=== PATIENT | female | born 1960 | race American Indian/Alaskan Native ===

== ENCOUNTER 2019-10-27 11:34 | Emergency (ER) | payer OTHER ==
[2019-10-27 12:38] VITALS: BP 187/67
--- NOTE | 2019-10-27 13:03 | Emergency Department Report ---
ED Lower Extremity HPI - General Chief Complaint: Extremity Problem,Nontraumatic Stated Complaint: LFT LEG PAIN EXTREME Time Seen by Provider: 10/27/19 12:28 Source: patient Mode of arrival: Wheelchair Limitations: No Limitations - History of Present Illness Initial Comments: This is a 59-year-old -[place] female who presents to the emergency room with left hip pain radiating down leg for several days. Past medical history of diabetes and hypertension. Patient reports occasional swelling which was improved with ice hot therapy. She reports pain is worse with weightbearing and intermittent. She denies recent injury, erythema, numbness or tingling, weakness, or chills. MD Complaint: hip injury (Left hip) Onset/Timin -: days(s) Injury: Hip: Left Type of Injury: unknown Place: home Improves With: nothing Worsens With: weight bearing Associated Symptoms: swelling, ambulatory. denies: snap/pop sensation, n umbness, tingling Treatments Prior to Arrival: cold therapy - Related Data Allergies Allergy/AdvReac Type Severity Reaction Status Date / Time No Known Allergies Allergy Unverified 10/27/19 11:46 ED Review of Systems ROS: Stated complaint: LFT LEG PAIN EXTREME Other details as noted in HPI Constitutional: denies: chills, fever Respiratory: denies: cough, shortness of breath, wheezing Cardiovascular: denies: chest pain, palpitations Gastrointestinal: denies: abdominal pain, nausea, diarrhea Musculoskeletal: arthralgia (Left hip pain). denies: back pain, joint swelling Skin: denies: rash, lesions Neurological: denies: headache, weakness, paresthesias Psychiatric: denies: anxiety, depression ED Past Medical Hx - Past Medical History Previous Medical History?: Yes Hx Hypertension: Yes Hx Diabetes: Yes - Surgical History Past Surgical History?: Yes Hx Cholecystectomy: Yes - Social History Smoking Status: Current Every Day Smoker Substance Use Type: Alcohol ED Physical Exam - General Limitations: No Limitations General appearance: alert, in no apparent distress, obese - Respiratory Respiratory exam: Present: normal lung sounds bilaterally. Absent: respiratory distress - Cardiovascular Cardiovascular Exam: Present: regular rate, normal rhythm. Absent: systolic murmur, diastolic murmur, rubs, gallop - GI/Abdominal GI/Abdominal exam: Present: soft, normal bowel sounds. Absent: distended, tenderness, guarding, rebound, rigid - Extremities Exam Extremities exam: Present: normal inspection - Expanded Lower Extremity Exam Left Hip exam: Present: full ROM, tenderness Upper Leg exam: Present: full ROM (pain with passive range of motion, motor strength 5 out of 5 distally.), tenderness (over the trochanter on the lateral side), crepidus. Absent: swelling, abrasion, laceration, ecchymosis, deformity, dislocation Knee exam: Present: normal inspection, full ROM Lower Leg exam: Present: normal inspection, full ROM Ankle exam: Present: normal inspection, full ROM Foot/Toe exam: Present: normal inspection, full ROM Neuro vascular tendon exam: Present: no vascular compromise Gait: Positive: observed and normal - Back Exam Back exam: Present: full ROM, paraspinal tenderness (Tenderness over the left iliac crest). Absent: muscle spasm, vertebral tenderness, rash noted - Neurological Exam Neurological exam: Present: alert, oriented X3, normal gait - Psychiatric Psychiatric exam: Present: normal affect, normal mood - Skin Skin exam: Present: warm, dry, intact, normal color. Absent: rash ED Course Vital Signs 10/27/19 11:45 Temperature 98 F Pulse Rate 63 Respiratory 20 Rate Blood Pressure 187/67 O2 Sat by Pulse 99 Oximetry ED Lower Extremity MDM - Radiology Data Radiology results: report reviewed Left hip-2 views INDICATION: hip pain. COMPARISON: None. IMPRESSION: No acute osseous or soft tissue abnormality. Mild DJD in the hips and SI joints. - Medical Decision Making 59-year-old female complaining of left hip pain. Patient was examined by me. Patient is nontoxic appearing and stable. Vitals are normal. Work-up: X-ray of left hip. Findings of no acute osseous or soft tissue abnormality. Mild DJD in the hips and SI joints. Given history, exam, and work-up, there is low suspicion for hip fracture, hip dislocation, DVT, infection, or trauma. Start tylenol 650 mg po bid. They have been given strict return her precautions for delayed possible symptoms. Patient discharged with prompt follow-up with primary care physician. Critical care attestation.: If time is entered above; I have spent that time in minutes in the direct care of this critically ill patient, excluding procedure time. ED Disposition Clinical Impression: Acute right hip pain Osteoarthritis Qualifiers: Osteoarthritis location: hip Osteoarthritis type: primary Laterality: left Qualified Code(s): M16.12 - Unilateral primary osteoarthritis, left hip Disposition: DC- TO HOME OR SELFCARE Is pt being admited?: No Condition: Stable Instructions: Osteoarthritis (ED), Self-Care Measures with a Chronic Disease (ED) Referrals: RACHELE HERNANDEZ MD [Primary Care Provider] - 3-5 Days Time of Disposition: 14:33
--- NOTE | 2019-10-27 13:41 | XRay Report ---
Left hip-2 views INDICATION: hip pain. COMPARISON: None. IMPRESSION: No acute osseous or soft tissue abnormality. Mild DJD in the hips and SI joints. Signer Name: Eligio Cárdenas MD Signed: 10/27/2019 1:37 PM Workstation Name: [id number]
== END 2019-10-27 14:40 | disposition home or self-care (01) ==
LOC: ED 11:34
DX: M16.12 Unilateral primary osteoarthritis, left hip (principal); I10 Essential (primary) hypertension; E11.9 Type 2 diabetes mellitus without complications; F17.200 Nicotine dependence, unspecified, uncomplicated

== ENCOUNTER 2020-08-20 16:06 | Emergency (ER) | payer OTHER ==
[2020-08-20 16:12] VITALS: BP 190/91
--- NOTE | 2020-08-20 16:57 | Emergency Department Report ---
ED Abdominal Pain HPI - General Chief Complaint: Abdominal Pain Stated Complaint: RIGHT SIDE PAIN PUI?: No Time Seen by Provider: 08/20/20 16:51 Source: patient Mode of arrival: Ambulatory Limitations: No Limitations - History of Present Illness Initial Comments: This is a 60-year-old female with a history of diabetes and hypertension controlled with medication who presents the ED complaining of right upper quadrant pain x2 days. Patient states symptoms began on Monday and has gotten worse today. Patient states that pain is localized to the right upper region with no radiation elsewhere. Patient states that she does have a history of gallbladder removal x1 year ago. She denies alcohol use MD Complaint: abdominal pain (ruq) Location: RUQ Radiation: none Migration to: no migration Severity scale (0 -10): 6 Quality: cramping Consistency: intermittent Associated Symptoms: diarrhea. denies: nausea, vomiting, fever - Related Data Previous Rx's Medication Instructions Recorded Last Taken Type Ketorolac [Toradol] 10 mg PO Q6H PRN #40 tablet 08/20/20 Unknown Rx Sulfamethoxazole/Trimethoprim 1 each PO BID #10 tablet 08/20/20 Unknown Rx [Bactrim DS TAB] Tamsulosin [Flomax] 0.4 mg PO QDAY #5 cap 08/20/20 Unknown Rx Allergies Allergy/AdvReac Type Severity Reaction Status Date / Time No Known Allergies Allergy Verified 08/20/20 16:07 ED Review of Systems ROS: Stated complaint: RIGHT SIDE PAIN Other details as noted in HPI Comment: All other systems reviewed and negative ED Past Medical Hx - Past Medical History Hx Hypertension: Yes Hx Diabetes: Yes - Surgical History Hx Cholecystectomy: Yes - Social History Smoking Status: Current Every Day Smoker Substance Use Type: None - Medications Home Medications: Home Medications Medication Instructions Recorded Confirmed Last Taken Type Ketorolac [Toradol] 10 mg PO Q6H PRN #40 tablet 08/20/20 Unknown Rx Sulfamethoxazole/Trimethoprim 1 each PO BID #10 tablet 08/20/20 Unknown Rx [Bactrim DS TAB] Tamsulosin [Flomax] 0.4 mg PO QDAY #5 cap 08/20/20 Unknown Rx ED Physical Exam - General Limitations: No Limitations General appearance: alert, in no apparent distress - Head Head exam: Present: atraumatic, normocephalic - Eye Eye exam: Present: normal appearance - ENT ENT exam: Present: mucous membranes moist - Neck Neck exam: Present: normal inspection - Respiratory Respiratory exam: Present: normal lung sounds bilaterally. Absent: respiratory distress - Cardiovascular Cardiovascular Exam: Present: regular rate, normal rhythm. Absent: systolic murmur, diastolic murmur, rubs, gallop - GI/Abdominal GI/Abdominal exam: Present: soft, tenderness (Mild tenderness to palpation of the right quadrant), normal bowel sounds. Absent: distended, guarding, rebound - Extremities Exam Extremities exam: Present: normal inspection - Back Exam Back exam: Present: normal inspection, full ROM, CVA tenderness (R). Absent: CVA tenderness (L) - Neurological Exam Neurological exam: Present: alert, oriented X3, normal gait - Psychiatric Psychiatric exam: Present: normal affect, normal mood - Skin Skin exam: Present: warm, dry, intact, normal color. Absent: rash ED Course Vital Signs 08/20/20 16:10 Temperature 98.3 F Pulse Rate 99 H Respiratory 18 Rate Blood Pressure 190/91 O2 Sat by Pulse 94 Oximetry ED Medical Decision Making - Radiology Data Radiology results: report reviewed, image reviewed CT ABDOMEN AND PELVIS WITHOUT CONTRAST HISTORY: Abdominal pain COMPARISON: None TECHNIQUE: Routine abdominal and pelvic CT exam performed without contrast. Lack of intravenous contrast limits evaluation of the vascular and solid organs.. All CT scans at this location are pe rformed using CT dose reduction for ALARA by means of automated exposure control. FINDINGS: CT ABDOMEN: Lung Bases: No significant abnormality. Liver: No significant abnormality. Biliary: Gallbladder is surgically absent. Spleen: No significant abnormality. Unenlarged. Pancreas: No significant abnormality. Adrenals: No significant abnormality. Kidneys: No acute findings. Nonobstructing 3 mm stone in the upper right kidney. Lymphatics: No lymphadenopathy. Vasculature: Atherosclerotic but nonaneurysmal abdominal aorta. Bowel/Peritoneum: No significant abnormality. No free air. No free fluid. Normal appendix. CT PELVIC: : No significant abnormality. Lymphatics: No lymphadenopathy. Osseous Structures: No aggressive appearing osseous lesions. Additional Findings: None IMPRESSION: 1. No acute findings. 2. Nonobstructing right intrarenal stone. Signer Name: Saleem Yo MD Signed: 08/20/2020 5:32 PM Workstation Name: [id number] Transcribed By: PAULINE Dictated By: Saleem Yo MD Electronically Authenticated By: Saleem Yo MD Signed Date/Time: 08/20/20 1732 - Medical Decision Making This 60-year-old female with right flank pain secondary to renal stone. All labs are within normal limits. CT abdomen shows no acute findings other than a renal stone see above Discussed all findings with the patient. Discussed pain medication treatment with patient. Discussed with patient follow-up with urology. Vital signs are normal patient is in no acute distress. Discussed follow-up in 2 to 3 days with primary care physician. Critical care attestation.: If time is entered above; I have spent that time in minutes in the direct care of this critically ill patient, excluding procedure time. ED Disposition Clinical Impression: Kidney stone on right side, Flank pain Disposition: TO HOME OR SELFCARE Is pt being admited?: No Does the pt Need Aspirin: No Condition: Stable Instructions: Abdominal Pain (ED), Renal Colic, [id number], Flank Pain, Adult, [id number], Kidney Stones Additional Instructions: Make sure to follow up with the primary care physician as discussed. Take all your medications as you've been prescribed. If you have any worsening symptoms or develop new symptoms please return to ED immediately. Prescriptions: Sulfamethoxazole/Trimethoprim [Bactrim DS TAB] 1 each PO BID #10 tablet Tamsulosin [Flomax] 0.4 mg PO QDAY #5 cap Ketorolac [Toradol] 10 mg PO Q6H PRN #40 tablet PRN Reason: Pain Referrals: [facility] [Provider Group] - 3-5 Days Forms: Accompanied Note, Work/School Release Form(ED) Time of Disposition: 19:19
--- NOTE | 2020-08-20 17:37 | Cat Scan Report ---
CT ABDOMEN AND PELVIS WITHOUT CONTRAST HISTORY: Abdominal pain COMPARISON: None TECHNIQUE: Routine abdominal and pelvic CT exam performed without contrast. Lack of intravenous cont rast limits evaluation of the vascular and solid organs.. All CT scans at this location are performed using CT dose reduction for ALARA by means of automated exposure control. FINDINGS: CT ABDOMEN: Lung Bases: No significant abnormality. Liver: No significant abnormality. Biliary: Gallbladder is surgically absent. Spleen: No significant abnormality. Unenlarged. Pancreas: No significant abnormality. Adrenals: No significant abnormality. Kidneys: No acute findings. Nonobstructing 3 mm stone in the upper right kidney. Lymphatics: No lymphadenopathy. Vasculature: Atherosclerotic but nonaneurysmal abdominal aorta. Bowel/Peritoneum: No significant abnormality. No free air. No free fluid. Normal appendix. CT PELVIC: : No significant abnormality. Lymphatics: No lymphadenopathy. Osseous Structures: No aggressive appearing osseous lesions. Additional Findings: None IMPRESSION: 1. No acute findings. 2. Nonobstructing right intrarenal stone. Signer Name: Saleem Yo MD Signed: 08/20/2020 5:32 PM Workstation Name: [id number]
[2020-08-20 18:43] LABS: Hematocrit 38.1 % (30.3-42.9); Hemoglobin 12.3 gm/dl (10.1-14.3); Mean Corpuscular HGB Conc 32 % (30-34); Mean Corpuscular Volume 86 fl (79-97); Platelet Count 281 K/mm3 (140-440); Red Blood Count 4.45 M/mm3 (3.65-5.03); Red Cell Distribution Width 15.3 % (13.2-15.2)
[2020-08-20 18:51] LABS: Alanine Aminotransferase 14 units/L (7-56); Albumin 4.3 g/dL (3.9-5); Blood Urea Nitrogen 11 mg/dL (7-17); Calcium 9.8 mg/dL (8.4-10.2); Hemolysis Index 5
[2020-08-20 18:52] LABS: BUN/Creatinine Ratio 16
[2020-08-20 19:13] LABS: Total Cells Counted 100
[2020-08-20 19:14] LABS: Anisocytosis 1+; Platelet Estimate Consistent w Auto
== END 2020-08-20 19:46 | disposition home or self-care (01) ==
LOC: ED 16:06
DX: N20.0 Calculus of kidney (principal); R10.9 Unspecified abdominal pain; Z79.899 Other long term (current) drug therapy; I10 Essential (primary) hypertension; E11.9 Type 2 diabetes mellitus without complications; F17.200 Nicotine dependence, unspecified, uncomplicated; Z90.49 Acquired absence of other specified parts of digestive tract
CPT/HCPCS: 36415; 74176; 80053; 83690; 85007; 85025